=== PATIENT | female | born 1970 | race Caucasian/White ===

== ENCOUNTER 2019-08-11 13:20 | Emergency (ER) | payer BC ==
[2019-08-11] MEDS ORDERED: NS 0.9% 1000 ML** 1,000 ML IV ONE (13:52)
--- NOTE | 2019-08-11 14:02 | UC ---
Headache HPI - HPI Summary HPI Summary: 49yo female presenting with "tension headache" that began this morning and has progressed throughout the day. Patient states that she has been nauseous and has vomited 4 times. Patient states is normal for her headaches, stating she has a history of migraine.. States she took a tablet of Zofran but immediately threw it up. Patient states that she also took Flexeril which has helped the headache some. States she is here because she can't keep anything down. Patient also notes that she believes she is dehydrated which she usually triggers her migraines. Does notes some photophobia. Denies vision changes. Denies worst headache of her life. Denies motor weakness. 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 - History Of Current Complaint Chief Complaint: UCHeadache Stated Complaint: MIGRANE Hx Obtained From: Patient Pain Intensity: 10 Timing: Constant Character: Throbbing, Pressure, Typical Headache Location of Headache: Diffuse Aggravating Factor(s): Position Change - worse when lying down Allevating Factor(s): Position Change - better with leaning forward - Allergies/Home Medications Allergies/Adverse Reactions: Allergies Allergy/AdvReac Type Severity Reaction Status Date / Time codeine Allergy Nausea And Verified 08/11/19 13:48 Vomiting ibuprofen Allergy GI Upset Verified 08/11/19 13:48 shellfish derived Allergy Nausea And Verified 08/11/19 13:48 Vomiting wheat Allergy Nausea And Verified 08/11/19 13:48 Vomiting Home Medications: Home Medications Cholecalciferol [Vitamin D] 1 dose PO DAILY 12/24/12 [History Confirmed 08/11/19 ] Magnesium 250 mg PO DAILY 12/24/12 [History Confirmed 08/11/19] Multivitamin [Multivitamins] 1 cap PO DAILY 12/24/12 [History Confirmed 08/11/19 ] Cyclobenzaprine TAB* [Flexeril 10 MG TAB*] 0.5 tab PO ONCE PRN 08/11/19 [ History Confirmed 08/11/19] Levothyroxine Sodium 0.5 tab PO DAILY 08/11/19 [History Confirmed 08/11/19] Ondansetron ODT TAB* [Zofran 4 MG Odt TAB*] 1 tab PO ONCE PRN 08/11/19 [History Confirmed 08/11/19] Ondansetron ODT TAB* [Zofran 4 MG Odt TAB*] 4 mg SL Q6H PRN #16 tab.odt [Rx] PMH/Surg Hx/FS Hx/Imm Hx Endocrine History: Hypothyroidism - Surgical History Surgical History: Yes Surgery Procedure, Year, and Place: umbical hernia repair, wisdom teeth - Family History Known Family History: Positive: Non-Contributory - Social History Alcohol Use: Occasionally Substance Use Type: None Smoking Status (MU): Never Smoked Tobacco Review of Systems All Other Systems Reviewed And Are Negative: Yes Constitutional: Positive: Negative Eyes: Positive: Photophobia Respiratory: Positive: Negative Cardiovascular: Positive: Negative Gastrointestinal: Positive: Vomiting, Nausea Motor: Positive: Negative Musculoskeletal: Positive: Negative Neurological/Mental Status: Positive: Headache. Negative: Weakness, Paresthesia , Numbness Physical Exam - Summary Physical Exam Summary: Vital Signs Reviewed: Yes A+Ox3, no distress Eyes: Conjunctiva Clear, SHANTAL. EOM intact and full ENT: Hearing grossly normal, TM x 2 clear, moist, uvula midline, no exudate, no erythema Neck: Positive: Supple Respiratory: Positive: No respiratory distress, No accessory muscle use + CTA throughout no w/r Cardiovascular: RRR nl s1, s2 no m/r Musculoskeletal Exam: LALA x 4 without difficulty Neurological: Positive: Alert, CN II-XII intact, negative romberg, negative finger to nose, negative heel to carpio Psychological: Positive: age appropriate behavior Skin: Positive: no rash, no ecchymosis Vital Signs: Initial Vital Signs Temp 98.3 F 08/11/19 13:39 Pulse 71 08/11/19 13:39 Resp 18 08/11/19 13:39 BP 125/85 08/11/19 13:39 Pulse Ox 99 08/11/19 13:39 Headache Course/Dx - Course Course Of Treatment: 49yo female presenting with "tension headache" that began this morning and has progressed throughout the day. Patient states that she has been nauseous and has vomited 4 times. Patient states is normal for her headaches, stating she has a history of migraine.. States she took a tablet of Zofran but immediately threw it up. Patient states that she also took Flexeril which has helped the headache some. States she is here because she can't keep anything down. Patient also notes that she believes she is dehydrated which she usually triggers her migraines. Does notes some photophobia. Denies vision changes. Denies worst headache of her life. Denies motor weakness. 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 Patient received 1L of NS, IV zofran, and IV toradol. Neuro exam WNL. Patient voiced relief and improved symptoms after received fluids and medications. Patient requested ODT Zofran tablets for home. I instructed her to the ED with any new or worsening symptoms. Patient voiced understanding and agreed with treatment plan. - Differential Dx/Diagnosis Differential Diagnosis/HQI/PQRI: Migraine, Tension Headache Provider Diagnosis: Acute tension headache Discharge ED - Sign-Out/Discharge Documenting (check all that apply): Patient Departure All imaging exams completed and their final reports reviewed: No Studies - Discharge Plan Condition: Stable Disposition: HOME Prescriptions: Ondansetron ODT TAB* [Zofran 4 MG Odt TAB*] 4 mg SL Q6H PRN #16 tab.odt PRN Reason: Nausea/Vomiting Patient Education Materials: Tension Headache (ED) Referrals: Nathaniel Funes [facility] [Primary Care Provider] - If Needed Additional Instructions: Take zofran as directed for relief of nausea and vomiting. Maintain hydration. Go to the emergency room with any new or worsening symptoms. - Billing Disposition and Condition Condition: STABLE Disposition: Home
[2019-08-11] MEDS ORDERED: Ketorolac *IM* INJ* 60 MG/2 ML VIAL IM ONE (14:08)
[2019-08-11] MEDS ORDERED: Ondansetron INJ* 2 MG/ML VIAL IV ONE (14:08)
[2019-08-11] MEDS ORDERED: Ketorolac INJ* 30 MG/ML 1 ML VIAL IV ONE (14:36)
[2019-08-11 15:03] VITALS: BP 125/68
== END 2019-08-11 15:33 | disposition home or self-care (01) ==
LOC: UCEAST 13:20
DX: G44.209 Tension-type headache, unspecified, not intractable (principal); E03.9 Hypothyroidism, unspecified; Z79.890 Hormone replacement therapy; Z88.5 Allergy status to narcotic agent; Z91.018 Allergy to other foods; Z91.013 Allergy to seafood; Z88.6 Allergy status to analgesic agent
CPT/HCPCS: 96360; 96374; 99212; G0463; J1885; J2405